=== PATIENT | male | born 1945 | race African-American/Black ===

== ENCOUNTER → 2018-11-23 | Outpatient (CLI) | payer MEDICARE ==
[2015-08-10 13:06] VITALS: BP 104/70
[~2018-11-23] MED LIST: ALLO100T PO; ASPI-612 PO; FURO-68 PO; GABA300C18 PO; INSU100V13 SQ; IPRA4AER IH; ISOS60TA2 PO; LOSA100T14 PO; METO-239 PO; SPIR25TA5 PO; SPIR50TA4 PO
--- NOTE | 2018-11-23 10:59 | KCIC ---
Bilateral lower extremity venous doppler ultrasound History: Swelling of the lower extremities bilaterally Comparison: None Findings: Multiple grayscale, color, and duplex spectral analysis sonographic images were acquired of the bilateral lower extremity veins to evaluate for the presence of DVT. There is normal phasicity. Normal compression, color-flow, and augmentation is demonstrated from the bilateral common femoral to the popliteal veins. There is normal color flow of the proximal greater saphenous and profunda femoris veins. Calf veins are poorly visualized due to patient's body habitus. There is left groin lymph node about 2.2 x 0.8 x 1.9 cm. Impression: 1. There is no evidence of deep venous thrombosis from the bilateral common femoral to the popliteal veins. Calf veins are poorly visualized. 2. There is nonspecific left groin lymph node. Electronically signed by: Eric Torres MD (11/23/2018 10:57 AM) [facility]
== END | disposition home or self-care (01) ==
LOC: KCIC US 07:54
PROVIDERS: ATTEND Family Medicine
DX: R22.43 Localized swelling, mass and lump, lower limb, bilateral (principal)
CPT/HCPCS: 93970

== ENCOUNTER 2020-10-05 16:13 | Emergency (ER) | payer MEDICARE ==
[~2020-10-05] VITALS: Ht 175.3 cm; Wt 109.0 kg
[~2020-10-05 16:13] MED LIST changes: -ASPI-612 PO; +ASPI-886 PO; -ISOS60TA2 PO; +ISOS60TA55 PO
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
--- NOTE | 2020-10-05 16:37 | EKG ---
[facility] [address] [place] [address] Test Date: 2020-10-05 Test Time: 16:17:31 Pat Name: CHIKIS MENEZES Department: Room: Gender: M Children Counselor: O/ : 1945 Requested By: JODY MENJIVAR Order Number: [id number] Reading MD: Measurements Intervals [place] Rate: 76 P: 36 VA: 262 QRS: -5 QRSD: 90 T: -3 QT: 366 QTc: 416 Interpretive Statements SINUS RHYTHM PROLONGED VA INTERVAL LEFT ATRIAL ABNORMALITY LEFTWARD AXIS QRS(T) CONTOUR ABNORMALITY CONSISTENT WITH INFERIOR INFARCT PROBABLY OLD ABNORMAL ECG RI6.02 No previous ECG available for comparison
[2020-10-05 16:55] LABS: BASO # 0.1 x10^3/uL (0.0-0.2); BASO % 1 % (0-3); EOS # 0.5 x10^3/uL (0.0-0.7); EOS % 8 % (0-3); HEMATOCRIT 46.5 % (39.0-53.0); HEMOGLOBIN 14.8 g/dL (13.0-17.5); LYMPH # 1.5 x10^3/uL (1.0-4.8); LYMPH % 22 % (24-48); MEAN CORPUSCULAR HEMOGLOBIN 29 pg (25-35); MEAN CORPUSCULAR HGB CONC 32 g/dL (31-37); MEAN CORPUSCULAR VOLUME 92 fL (79-100); MONO # 0.8 x10^3/uL (0.0-1.1); MONO % 12 % (0-9); NEUT % 58 % (31-73); PLATELET COUNT 380 x10^3/uL (140-400); RED BLOOD COUNT 5.05 x10^6/uL (4.30-5.70); RED CELL DISTRIBUTION WIDTH 16.5 % (11.5-14.5); WHITE BLOOD COUNT 6.9 x10^3/uL (4.0-11.0)
[2020-10-05 17:01] LABS: PROTHROMBIN TIME PATIENT 14.6 SEC (11.7-14.0)
[2020-10-05 17:15] LABS: CALCIUM 8.5 mg/dL (8.5-10.1); GFR 39.5; POTASSIUM 3.6 mmol/L (3.5-5.1)
[2020-10-05 17:18] LABS: ALBUMIN 2.8 g/dL (3.4-5.0); ALBUMIN/GLOBULIN RATIO 0.7 (1.0-1.7); MAGNESIUM 2.3 mg/dL (1.8-2.4); TOTAL BILIRUBIN 0.6 mg/dL (0.2-1.0); TOTAL PROTEIN 6.7 g/dL (6.4-8.2)
[2020-10-05 17:52] VITALS: BP 154/72
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
== END 2020-10-05 18:32 | disposition left against medical advice (07) ==
LOC: ER 16:13
DX: R07.2 Precordial pain (principal); I12.9 Hypertensive chronic kidney disease with stage 1 through stage 4 chronic kidney disease, or unspecified chronic kidney disease; E11.22 Type 2 diabetes mellitus with diabetic chronic kidney disease; N18.9 Chronic kidney disease, unspecified; E78.5 Hyperlipidemia, unspecified
CPT/HCPCS: 36415; 71045; 80053; 83690; 83735; 83880; 84484; 85025; 85610; 85730; 93005; 99285-25

== ENCOUNTER 2021-05-12 09:30 | Emergency (ER) | payer MEDICARE ==
[~2021-05-12] VITALS: Ht 172.7 cm; Wt 111.8 kg
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
[2021-05-12 10:24] VITALS: BP 192/81
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
[2021-05-12 10:38] LABS: BASO # 0.1 x10^3/uL (0.0-0.2); BASO % 1 % (0-3); EOS # 0.4 x10^3/uL (0.0-0.7); EOS % 5 % (0-3); HEMATOCRIT 48.4 % (39.0-53.0); HEMOGLOBIN 15.5 g/dL (13.0-17.5); LYMPH # 1.3 x10^3/uL (1.0-4.8); LYMPH % 15 % (24-48); MEAN CORPUSCULAR HEMOGLOBIN 30 pg (25-35); MEAN CORPUSCULAR HGB CONC 32 g/dL (31-37); MEAN CORPUSCULAR VOLUME 95 fL (79-100); MONO # 1.2 x10^3/uL (0.0-1.1); MONO % 14 % (0-9); NEUT # 5.7 x10^3/uL (1.8-7.7); NEUT % 65 % (31-73); PLATELET COUNT 434 x10^3/uL (140-400); RED BLOOD COUNT 5.13 x10^6/uL (4.30-5.70); RED CELL DISTRIBUTION WIDTH 16.4 % (11.5-14.5); WHITE BLOOD COUNT 8.7 x10^3/uL (4.0-11.0)
[2021-05-12 10:51] LABS: CALCIUM 8.5 mg/dL (8.5-10.1); CREATININE 2.4 mg/dL (0.7-1.3); POTASSIUM 4.1 mmol/L (3.5-5.1)
== END 2021-05-12 11:45 | disposition home or self-care (01) ==
LOC: ER 09:30
DX: M54.2 Cervicalgia (principal); M54.6 Pain in thoracic spine; G89.11 Acute pain due to trauma; E11.9 Type 2 diabetes mellitus without complications; I10 Essential (primary) hypertension; M10.9 Gout, unspecified; Z87.891 Personal history of nicotine dependence; V49.49XA Driver injured in collision with other motor vehicles in traffic accident, initial encounter; Y93.89 Activity, other specified; Y92.488 Other paved roadways as the place of occurrence of the external cause; Y99.8 Other external cause status
CPT/HCPCS: 36415; 70450; 71250; 72125; 80048; 85025; 99284-25

== ENCOUNTER → 2021-10-26 | Outpatient (CLI) | payer BC ==
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
== END ==
LOC: KCIC 15:50
PROVIDERS: ATTEND Family Medicine
DX: M47.816 Spondylosis without myelopathy or radiculopathy, lumbar region (principal); M46.1 Sacroiliitis, not elsewhere classified; M54.50 Low back pain, unspecified; M43.8X6 Other specified deforming dorsopathies, lumbar region; M43.07 Spondylolysis, lumbosacral region
CPT/HCPCS: 72100